=== PATIENT | male | born 1955 | race African-American/Black ===

== ENCOUNTER 2020-05-30 18:44 | Emergency (ER) | payer OTHER ==
[~2020-05-30] VITALS: Ht 175.3 cm; Wt 90.7 kg
[2020-05-30] MEDS ORDERED: ACCU-CHEK COMFORT CURVE STRIP VI ONE (19:15)
[2020-05-30 19:58] LABS: Basophils # (auto) 0.1 10 ^3/uL (0-0.2); Eosinophils # (auto) 0.2 10 ^3/uL (0-0.8); Eosinophils % (auto) 2.5 % (0.0-7.0); Hematocrit 25.6 % (41.0-53.0); Hemoglobin 8.7 g/dL (13.5-17.5); Lymphocytes # (auto) 0.6 10 ^3/uL (0.4-5.4); Lymphocytes % (auto) 7.4 % (10.0-50.0); Mean Corpuscular Hemoglobin 30.1 pg (28.0-32.0); Mean Corpuscular Volume 88.7 fL (80.0-100.0); Monocytes # (auto) 0.7 10 ^3/uL (0-1.3); Monocytes % (auto) 8.6 % (0.0-12.0); Neutrophils # (auto) 6.6 10 ^3/uL (1.6-8.6); Neutrophils % (auto) 80.5 % (37.0-80.0); Nucleated Red Blood Cells % 0.1 %; Platelet Count (auto) 267 10^3/uL (140-450); Red Blood Cells 2.89 10^6/uL (4.5-5.90); Red Cell Distribution Width 14.2 % (11.8-14.3); White Blood Cell 8.2 10^3/uL (4.4-10.8)
[2020-05-30 20:18] LABS: Alanine Aminotransferase 27 U/L (16-61); Albumin 3.3 g/dL (3.4-5.0); Anion Gap 6 (5-15); Blood Urea Nitrogen 21 mg/dL (7-18); Calcium 8.4 mg/dL (8.5-10.1); Carbon Dioxide 33 mmol/L (21-32); Chloride 99 mmol/L (98-107); Glucose 141 mg/dL (74-106); Magnesium 3.2 mg/dL (1.6-2.6); Potassium 4.4 mmol/L (3.5-5.1); Sodium 138 mmol/L (136-145)
[2020-05-30 20:22] LABS: INR 1.03 (0.9-1.15); Partial Thromboplastin Time 27.5 sec (23.0-31.2)
[2020-05-30 20:23] LABS: Alkaline Phosphatase 83 U/L (45-117); Aspartate Aminotransferase 19 U/L (15-37); BUN/Creatinine Ratio 2.8; Bilirubin, Total 0.5 mg/dL (0.2-1.0); GFR African American 9 mL/min; GFR Non-African American 8 mL/min; Total Protein 6.9 g/dL (6.4-8.2)
[2020-05-31] VITALS: BP 156/71
== END 2020-05-31 00:10 | disposition home or self-care (01) ==
LOC: ER 18:44 → EDBD 18:44 → ER 05-31 00:10
DX: M79.662 Pain in left lower leg (principal); T38.3X5A Adverse effect of insulin and oral hypoglycemic [antidiabetic] drugs, initial encounter; E11.9 Type 2 diabetes mellitus without complications; R55 Syncope and collapse; Y92.9 Unspecified place or not applicable
CPT/HCPCS: 36415; 70450; 71045; 80053; 82962; 83735; 83880; 84443; 84484; 85025; 85379; 85610; 85730; 93005

== ENCOUNTER 2020-07-10 19:55 | Emergency (ER) | payer OTHER ==
[~2020-07-10] VITALS: Ht 182.9 cm; Wt 86.2 kg
[2020-07-10 21:25] LABS: Basophils # (auto) 0.1 10 ^3/uL (0-0.2); Basophils % (auto) 1.3 % (0.0-2.0); Eosinophils # (auto) 0.2 10 ^3/uL (0-0.8); Eosinophils % (auto) 2.4 % (0.0-7.0); Hemoglobin 11.2 g/dL (13.5-17.5); Lymphocytes # (auto) 1.7 10 ^3/uL (0.4-5.4); Mean Corpuscular Hemoglobin 27.9 pg (28.0-32.0); Mean Corpuscular Hgb Conc. 31.2 g/dL (32.0-36.0); Mean Corpuscular Volume 89.3 fL (80.0-100.0); Monocytes # (auto) 0.9 10 ^3/uL (0-1.3); Neutrophils # (auto) 3.5 10 ^3/uL (1.6-8.6); Neutrophils % (auto) 55.3 % (37.0-80.0); Nucleated Red Blood Cells % 0.1 %; Platelet Count (auto) 283 10^3/uL (140-450); Red Blood Cells 4.04 10^6/uL (4.5-5.90); Red Cell Distribution Width 17.4 % (11.8-14.3); White Blood Cell 6.3 10^3/uL (4.4-10.8)
[2020-07-10 21:41] LABS: INR 1.06 (0.9-1.15); Partial Thromboplastin Time 28.2 sec (23.0-31.2)
[2020-07-10 21:44] LABS: Albumin 3.2 g/dL (3.4-5.0); Calcium 8.6 mg/dL (8.5-10.1); Magnesium 3.8 mg/dL (1.6-2.6); Potassium 4.2 mmol/L (3.5-5.1)
[2020-07-10 21:53] LABS: BUN/Creatinine Ratio 2.5; Total Protein 7.6 g/dL (6.4-8.2)
[2020-07-11] MEDS ORDERED: TAMS0.4C36 PO (06:28)
[2020-07-11] MEDS ORDERED: TRAZ50TA2 PO (06:28)
[2020-07-11] MEDS ORDERED: SEVE800T8 PO (06:28)
[2020-07-11] MEDS ORDERED: FERR-20 PO (06:28)
[2020-07-11] MEDS ORDERED: ASPI81CH43 GT (06:28)
[2020-07-11] MEDS ORDERED: ATOR1TAB PO (06:28)
[2020-07-11] MEDS ORDERED: LYCO10CA PO (06:28)
[2020-07-11] MEDS ORDERED: FURO40TA4 PO (06:28)
[2020-07-11] MEDS ORDERED: CINA30TA2 PO (06:28)
[2020-07-11] MEDS ORDERED: LISI40TA11 PO (06:28)
[2020-07-11] MEDS ORDERED: CETI10TA80 PO (06:28)
[2020-07-11] MEDS ORDERED: SPIR25TA8 PO (06:28)
[2020-07-11] MEDS ORDERED: ASPI81CH74 PO (06:28)
[2020-07-11] MEDS ORDERED: POTA1080 PO (06:30)
[2020-07-11 11:08] VITALS: BP 128/68
== END 2020-07-11 11:21 | disposition home or self-care (01) ==
LOC: ER 19:59
DX: R07.89 Other chest pain (principal); E11.22 Type 2 diabetes mellitus with diabetic chronic kidney disease; N18.6 End stage renal disease; Z88.6 Allergy status to analgesic agent
CPT/HCPCS: 36415; 71045; 80053; 83605; 83735; 83880; 84484; 85025; 85379; 85610; 85730; 87040; 93005

== ENCOUNTER → 2024-05-25 | Outpatient (CLI) | payer OTHER ==
[~2024-05-25] MED LIST: ASPI81CH43 GT; ASPI81CH74 PO; ATOR-47 PO; CETI10TA2 PO; CINA30TA2 PO; FERR325T24 PO; FURO40TA4 PO; LISI40TA16 PO; LYCO10CA2 PO; POTA1080 PO; SEVE800T8 PO; SPIR25TA8 PO; TAMS0.4C39 PO; TRAZ-227 PO
[2024-05-25 10:30] LABS: Basophils # (auto) 0 10 ^3/uL (0-0.2); Basophils % (auto) 0.8 % (0.0-2.0); Eosinophils # (auto) 0.1 10 ^3/uL (0-0.8); Eosinophils % (auto) 1.6 % (0.0-7.0); Hematocrit 30.3 % (41.0-53.0); Hemoglobin 10.4 g/dL (13.5-17.5); Lymphocytes # (auto) 0.8 10 ^3/uL (0.4-5.4); Lymphocytes % (auto) 13.3 % (10.0-50.0); Mean Corpuscular Hemoglobin 30.1 pg (28.0-32.0); Mean Corpuscular Hgb Conc. 34.3 g/dL (32.0-36.0); Mean Corpuscular Volume 87.7 fL (80.0-100.0); Monocytes # (auto) 0.7 10 ^3/uL (0-1.3); Monocytes % (auto) 12.5 % (0.0-12.0); Neutrophils # (auto) 4.2 10 ^3/uL (1.6-8.6); Neutrophils % (auto) 71.8 % (37.0-80.0); Platelet Count (auto) 219 10^3/uL (140-450); Red Blood Cells 3.45 10^6/uL (4.5-5.90); Red Cell Distribution Width 14.3 % (11.8-14.3); White Blood Cell 5.8 10^3/uL (4.4-10.8)
[2024-05-25 10:46] LABS: INR 1.13 (0.9-1.15); Partial Thromboplastin Time 29.1 SEC (24.5-34.5); Prothrombin Time 11.9 sec (9.3-11.8)
[2024-05-25 11:03] LABS: Alanine Aminotransferase 17 U/L (7-40); Albumin 3.6 g/dL (3.2-4.8); Alkaline Phosphatase 75 U/L (46-116); Anion Gap 10 (5-15); Aspartate Aminotransferase 15 U/L (13-40); BUN/Creatinine Ratio 2.6 (10.0-20.0); Bilirubin, Total < 0.2 mg/dL (0.2-1.0); Blood Urea Nitrogen 37 mg/dL (9-23); Calcium 10.6 mg/dL (8.7-10.4); Carbon Dioxide 32 mmol/L (20-31); Chloride 98 mmol/L (98-107); Glucose 139 mg/dL (74-106); Potassium 3.8 mmol/L (3.5-5.1); Sodium 140 mmol/L (136-145)
== END | disposition home or self-care (01) ==
LOC: LAB 10:16
PROVIDERS: ATTEND Nurse Practitioner
DX: Z01.812 Encounter for preprocedural laboratory examination (principal); E78.5 Hyperlipidemia, unspecified; E11.22 Type 2 diabetes mellitus with diabetic chronic kidney disease
CPT/HCPCS: 36415; 80053; 85025; 85610; 85730